=== PATIENT | female | born 2000 | race Two or more races ===

== ENCOUNTER 2022-09-28 15:21 | Emergency (ER) | payer MEDICAID ==
[~2022-09-28] VITALS: Ht 162.6 cm; Wt 67.0 kg
[2022-09-28 17:28] LABS: BASOPHILS % (AUTO) 0.3 % (0-1); EOSINOPHILS % (AUTO) 0.4 % (0-6); HEMATOCRIT 37.4 % (35.0-45.0); HEMOGLOBIN 12.6 g/dl (12.0-16.0); LYMPHOCYTES # (AUTO) 1.8 X10'3 (1.1-4.8); LYMPHOCYTES % (AUTO) 19.9 % (21-51); MEAN CORPUSCULAR HGB CONC 33.8 g/dL (33.0-36.5); MEAN CORPUSCULAR VOLUME 91.7 FL (78-98); MEAN PLATELET VOLUME 9.5 FL (7.4-10.4); MONOCYTES # (AUTO) 0.8 X10'3 (0-0.9); MONOCYTES % (AUTO) 9.2 % (2-12); NEUTROPHILS # (AUTO) 6.2 X10'3 (1.8-7.7); NEUTROPHILS % (AUTO) 70.2 % (42-75); PLATELET COUNT 199 X10'3 (140-440); RED BLOOD COUNT 4.08 X10'6 (4.20-5.60); RED CELL DISTRIBUTION WIDTH 13.4 % (11.5-14.5); WHITE BLOOD COUNT 8.9 X10'3 (4.5-11.0)
[2022-09-28 17:46] LABS: ALANINE AMINOTRANSFERASE 202 U/L (12-78); ALBUMIN 3.5 G/DL (3.4-5.0); ALBUMIN/GLOBULIN RATIO 1.1 (1.1-1.5); ALKALINE PHOSPHATASE 129 IU/L (46-116); ANION GAP 8 (8-16); ASPARTATE AMINO TRANSFERASE 167 U/L (10-37); BLOOD UREA NITROGEN 12 MG/DL (7-18); BUN/CREATININE RATIO 17.4 (6.6-38.0); CALCIUM 8.7 MG/DL (8.5-10.1); CHLORIDE 106 MMOL/L (99-107); CREATININE 0.69 MG/DL (0.40-0.90); GLUCOSE 115 MG/DL (70-104); LIPASE 133 U/L (73-393); POTASSIUM 3.7 MMOL/L (3.5-5.1); SODIUM 141 MMOL/L (135-145); TOTAL CARBON DIOXIDE 26.6 MMOL/L (24-32); TOTAL PROTEIN 6.7 G/DL (6.4-8.2); eGFR > 90 ML/MIN
[2022-09-28 19:48] VITALS: BP 114/70
[2022-09-28] MEDS ORDERED: ketorolac trometh. 30mg/ml inj. IV ONE (20:05)
[2022-09-28] MEDS ORDERED: diphenhydrAMINE 50 mg/ml inj IV ONE (20:05)
[2022-09-28] MEDS ORDERED: normal saline 1000ML IV soln IVB ONE (20:05)
[2022-09-28] MEDS ORDERED: metoclopramide 5 mg/ml inj IV ONE (20:05)
[2022-09-28] MEDS ORDERED: morphine 4 MG/ML inj SYRINge IV ONE (20:05)
[2022-09-28 20:12] LABS: CLARITY,URINE CLEAR (Clear); COLOR,URINE YELLOW (Yellow); GLUCOSE, URINE NEGATIVE (Neg); KETONES,URINE NEGATIVE (Neg); LEUKOCYTE ESTERASE ,URINE NEGATIVE (Neg); NITRITES, URINE NEGATIVE (Neg); OCCULT BLOOD,URINE NEGATIVE (Neg); PROTEIN,URINE NEGATIVE (Neg)
[2022-09-28 20:13] LABS: URINE HCG NEGATIVE (NEG)
[2022-09-28 20:17] LABS: UA COLLECTION TYPE CLN CATCH MIDSTREAM
[2022-09-28] MEDS ORDERED: OXYC-134 PO (20:50)
[2022-09-28] MEDS ORDERED: ONDA4TAB12 PO (21:09)
[2022-09-28] MEDS ORDERED: IBUP-1985 PO (21:47)
== END 2022-09-28 21:53 | disposition home or self-care (01) ==
LOC: ER 15:23
DX: G89.18 Other acute postprocedural pain (principal); Z90.49 Acquired absence of other specified parts of digestive tract
CPT/HCPCS: 36415; 80053; 81003; 81025; 83690; 85025; 96374; 96375; 99284; J1200; J1885; J2270; J2765; J7030